=== PATIENT | female | born 1965 | race African-American/Black ===

== ENCOUNTER 2018-12-06 05:28 | Emergency (ER) | payer BC ==
--- NOTE | 2018-12-06 05:47 | ED ---
Influenza-Like Illness - HPI Summary HPI Summary: Pt. is a 53 y.o female who presents to the ER for fever, body aches, N/V, and cough that started yesterday. 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 Past medical hx of HTN. Pt. notes that she has been wheezing when she lays down. Denies hx of asthma but notes wheezing when sick. She does have a nebulizer machine at home. Pt. denies diarrhea, abd. pain, urinary sxs. Sxs are mild in severity. Took motrin around 0300 today. No current modifying factors. - History of Current Complaint Chief Complaint: EDFluSymptoms Time Seen by Provider: 12/06/18 05:39 Hx Obtained From: Patient - Allergy/Home Medications Allergies/Adverse Reactions: Allergies Allergy/AdvReac Type Severity Reaction Status Date / Time No Known Allergies Allergy Verified 12/06/18 05:34 PMH/Surg Hx/FS Hx/Imm Hx Previously Healthy: Yes Infectious Disease History: No Infectious Disease History: Denies: Traveled Outside the [place] in Last 30 Days - Family History Known Family History: Positive: Non-Contributory - Social History Occupation: Employed Full-time Lives: With Family Review of Systems Positive: Fever, Chills Eyes: Negative ENT: Negative Cardiovascular: Negative Positive: Cough Positive: Vomiting, Nausea. Negative: Abdominal Pain, Diarrhea Genitourinary: Negative Positive: Myalgia Skin: Negative Neurological: Negative All Other Systems Reviewed And Are Negative: Yes Physical Exam Triage Information Reviewed: Yes Vital Signs On Initial Exam: Initial Vitals Temp Pulse Resp BP Pulse Ox 98.9 F 90 18 108/71 95 12/06/18 05:31 12/06/18 05:31 12/06/18 05:31 12/06/18 05:31 12/06/18 05:31 Vital Signs Reviewed: Yes Appearance: Positive: Well-Appearing - Pt. sitting up in bed in NAD. Wearing mask. Skin: Positive: Warm, Dry Head/Face: Positive: Normal Head/Face Inspection Eyes: Positive: Normal, EOMI, ARELY, Conjunctiva Clear ENT: Positive: Pharynx normal, TMs normal. Negative: Tonsillar swelling, Tonsillar exudate Neck: Positive: Supple, Nontender, No Lymphadenopathy. Negative: Nuchal Rigidity Respiratory/Lung Sounds: Positive: Clear to Auscultation, Breath Sounds Present. Negative: Rales, Rhonchi, Wheezes Cardiovascular: Positive: Normal, RRR Abdomen Description: Positive: Nontender, Soft Neurological: Positive: Normal, CN Intact II-III Psychiatric: Positive: Affect/Mood Appropriate Diagnostics - Vital Signs Vital Signs Temp Pulse Resp BP Pulse Ox 12/06/18 05:31 98.9 F 90 18 108/71 95 - Laboratory Lab Statement: Any lab studies that have been ordered have been reviewed, and results considered in the medical decision making process. Flu Symptom Course/Dx - Course Course Of Treatment: Pt. presenting with flu like sxs. VS stable. Afebrile. Negative flu swab. Will treat conservatively. Pt. currently tolerating PO fluids and declines antiemetics. Pt. notes she has been wheezing at night. She has a nebulizer at home. Rx for albuterol sent to pharm. Advised to increase fluids and rest. Tylenol or motrin for pain and fever as directed. F.u with PCP and return if sxs change or worsen. Work excuse given. Pt. understands and agrees with plan. - Diagnoses Differential Diagnosis/HQI/PQRI: Positive: Bronchitis, Influenza, Pneumonia, Upper Respiratory Infection Provider Diagnoses: Viral syndrome Discharge - Sign-Out/Discharge Documenting (check all that apply): Patient Departure - Discharge Plan Condition: Good Disposition: HOME Prescriptions: Albuterol 2.5MG/3ML (0.083%)* [Ventolin 2.5 MG/3 ML NEB.TAYLER*] 2.5 mg INH Q4H # 30 [email or web address] Patient Education Materials: Viral Syndrome (ED) Forms: *Work Release Referrals: Suzy YAÑEZ,Constanza Smith [Primary Care Provider] - Additional Instructions: Schedule a follow up appointment with PCP if symptoms persist Tylenol or Motrin for pain and fever as directed Increase fluids and rest Use nebulizer as directed for wheezing Return to ER if symptoms change or worse - Billing Disposition and Condition Condition: GOOD Disposition: Home
[2018-12-06 06:34] LABS: Influenza A Molecular NEGATIVE (Negative); Influenza B Molecular NEGATIVE (Negative)
[2018-12-06 07:01] VITALS: BP 149/83
== END 2018-12-06 06:55 | disposition home or self-care (01) ==
LOC: ED 05:28
DX: B34.9 Viral infection, unspecified (principal); R50.9 Fever, unspecified; R11.2 Nausea with vomiting, unspecified; R05 Cough
CPT/HCPCS: 99282